=== PATIENT | male | born 1960 | race Two or more races ===

== ENCOUNTER 2017-02-02 10:48 | Emergency (ER) | payer MEDICAID ==
[~2017-02-02] VITALS: Ht 165.1 cm; Wt 92.6 kg
[2017-02-02] MEDS ORDERED: OXYcodone/APAP 5/325MG TABLET ONE ×2 (11:08→11:12)
[2017-02-02] MEDS ORDERED: OXYcodone/APAP 5/325MG TABLET PO ONE (11:30)
[2017-02-02 11:45] VITALS: BP 160/99
== END 2017-02-02 11:48 | disposition home or self-care (01) ==
LOC: ED 11:22
DX: K08.89 Other specified disorders of teeth and supporting structures (principal); I10 Essential (primary) hypertension; Z79.82 Long term (current) use of aspirin
CPT/HCPCS: 99283